=== PATIENT | male | born 1940 | race Caucasian/White ===

== ENCOUNTER 2021-10-07 09:53 | Day surgery (SDC) | payer OTHER ==
[~2021-10-07 09:53] MED LIST: ATENOLOL50 MG PO; BENADRYL50 MG PO; CHILDREN'S ASPI81 MG PO; CORTIZONE-1028 GM TP; CRESTOR10 MG PO; GLIPIZIDE XL2.5 MG PO; GLIPIZIDE2.5 MG/BO1 PO; GLUMETZA500 MG PO; KEFLEX750 MG PO; KEPPRA500 MG PO; PLAVIX75 MG PO; TOPROL XL50 M1 PO; VALSARTAN80 MG PO; ZETIA10 MG PO
[2021-10-07] MEDS ORDERED: ULTRACET PO (14:06)
== END 2021-10-07 16:00 | disposition home or self-care (01) ==
LOC: CIR.AMB 09:53
PROVIDERS: ATTEND Surgery
DX: R15.9 Full incontinence of feces (principal); I25.10 Atherosclerotic heart disease of native coronary artery without angina pectoris; Z95.5 Presence of coronary angioplasty implant and graft; I10 Essential (primary) hypertension; Z87.891 Personal history of nicotine dependence; N40.0 Benign prostatic hyperplasia without lower urinary tract symptoms; M51.36 Other intervertebral disc degeneration, lumbar region; Z79.82 Long term (current) use of aspirin; Z79.84 Long term (current) use of oral hypoglycemic drugs; E11.9 Type 2 diabetes mellitus without complications; Z20.822 Contact with and (suspected) exposure to COVID-19
CPT/HCPCS: 64581; 95972; C1778

== ENCOUNTER 2021-11-03 13:41 | Inpatient (IN) | payer OTHER ==
[~2021-11-03] VITALS: Ht 188 cm; Wt 97.5 kg
[~2021-11-03 13:41] MED LIST changes: +ULTRACET PO
--- NOTE | 2021-11-03 14:21 | NUR ---
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 PATIENT SAYS THAT HE IS ALSO HAVING AN ARRYTHMIA WITH DIZZINESS.
--- NOTE | 2021-11-03 18:27 | NUR ---
EVALUA PTE. SE EDUCA SOBRE [place] MEDICO EL CUAL REFIERE COMPRENDER. SE REALIZAN MUESTRAS DE LABORATORIO BAJO MEDIDAS ASEPTICAS. SE ADMINISTRAN MEDICAMENTOS GRIS ORDEN MEDICA. SE COORDINA PONCHO Yusuf PTE MANEJADO POR . PENDIENTE ADMISION.
[2021-11-04] MEDS ORDERED: ULTRAM50 MG PO (14:41)
[2021-11-04] MEDS ORDERED: BACTRIM DS TAB1 EACH PO (14:43)
== END 2021-11-04 22:37 | disposition home or self-care (01) | DRG 42 ==
LOC: ER 13:41 → SURG 16:52
PROVIDERS: ADMIT Surgery; ATTEND Surgery
PROC: 01PY0MZ Removal of Neurostimulator Lead from Peripheral Nerve, Open Approach (ICD-10-PCS; principal; 2021-11-03)
DX: T85.890A Other specified complication of nervous system prosthetic devices, implants and grafts, initial encounter (principal); Z20.822 Contact with and (suspected) exposure to COVID-19